=== PATIENT | male | born 1950 | race Caucasian/White ===

== ENCOUNTER → 2017-01-21 | Outpatient (CLI) | payer MEDICARE, OTHER | LOC: HEART 5 11-24 11:00 | DX: R00.2 Palpitations (principal) | CPT/HCPCS: 93306 ==

== ENCOUNTER → 2017-05-04 | Outpatient (CLI) | payer MEDICARE, OTHER | LOC: US 09:27 | PROVIDERS: Internal Medicine Nephrology | DX: N18.3 Chronic kidney disease, stage 3 (moderate) (principal) | CPT/HCPCS: 36415; 80053; 82043; 82570; 83516; 84156; 86039; 86160; 86162; 86225; 86334; 86803; 87340 ==

== ENCOUNTER → 2017-07-18 | Outpatient (CLI) | payer MEDICARE, OTHER | LOC: KOH-I 09:27 | DX: J20.9 Acute bronchitis, unspecified (principal); F17.200 Nicotine dependence, unspecified, uncomplicated; Z95.0 Presence of cardiac pacemaker | CPT/HCPCS: 71020 ==

== ENCOUNTER → 2021-04-07 | Outpatient (CLI) | payer MEDICARE ==
[~2021-04-07] MED LIST: ACTOS30 MG PO; ALBUTEROL0.63 MG/3 NEB; ALL DAY ALLERGY10 M2 PO; AMIODARONE HCL200 MG PO; AMIODARONE HCL400 MG PO; AMOXICILLIN875 MG PO; ASPIRIN CHEWABL81 MG PO; BETAPACE 80MG T80 MG PO; BETAPACE120 MG PO; BUMETANIDE1 MG PO; CLARITIN10 MG PO; CYTOTEC 100 M100 MCG PO; DIABETA 5 MG TAB5 MG PO; ELIQUIS 5 MG TAB5 MG PO; ELIQUIS5 MG PO; FEOSOL325 MG PO; FERROUS FUMARA324 MG PO; FLONASE 0.05% N16 GM; HUMALOG 10100 UNITS/ SC; HUMALOG100 UNIT/1 SC; HUMULIN 70100 UNIT/2 SC; HYDROCHLOROTHIA25 MG PO; IMDUR ER TAB 3030 MG PO; INVOKAMET 150-1 EAC1 PO; IPRAT-ALBUT 0.5-3 ML INH; JANUVIA50 MG PO; LANTUS SOL100 UNIT/1 SQ; LASIX40 MG PO; LEVAQUIN500 MG PO; LEVAQUIN750 MG PO; LIPITOR40 MG PO; LISINOPRIL2.5 MG PO; LISINOPRIL40 MG PO; NOVOLIN 70100 UNIT/1 SQ; OMEPRAZOLE20 MG PO; PACERONE200 MG PO; PANTOPRAZOLE SO40 MG PO; PREDNISONE10 MG PO; PROAIR HFA8.5 GM INH; PROTONIX40 MG PO; REQUIP0.25 MG PO; SENOKOT-S TABL1 EACH PO; SINGULAIR10 MG PO; TOPROL XL25 MG PO; TYLENOL W/CODEIN1 E1 PO; VENTOLIN HFA 66.7 GM INH; VITAMIN B-121000 MC3 PO; ZAROXOLYN/DIULO5 MG PO; ZESTRIL2.5 MG PO; inhaler
== END ==
LOC: HEART 5 08:55
DX: R06.02 Shortness of breath (principal); Z79.899 Other long term (current) drug therapy
CPT/HCPCS: 94060; 94729

== ENCOUNTER 2021-05-19 13:01 | Inpatient (IN) | payer MEDICARE, OTHER ==
[~2021-05-19] VITALS: Ht 182.9 cm; Wt 104.8 kg
[~2021-05-19 13:01] MED LIST changes: -BUMETANIDE1 MG PO; -CLARITIN10 MG PO; -FERROUS FUMARA324 MG PO; -HUMULIN 70100 UNIT/2 SC; -LANTUS SOL100 UNIT/1 SQ; -PACERONE200 MG PO; -VITAMIN B-121000 MC3 PO; -ZAROXOLYN/DIULO5 MG PO
[2021-05-19 14:30] LABS: HEMOGLOBIN 10.9 gm/dl (14.0-17.5); RED BLOOD COUNT 3.7 M/UL (4.20-5.50)
[2021-05-19] MEDS ORDERED: PACERONE200 MG PO (15:58)
[2021-05-19] MEDS ORDERED: VENTOLIN HFA 66.7 GM INH (16:16)
[2021-05-19] MEDS ORDERED: FERROUS FUMARA324 MG PO (16:16)
[2021-05-19] MEDS ORDERED: LASIX40 MG PO (16:17)
[2021-05-19] MEDS ORDERED: FLONASE 0.05% N16 GM (16:20)
[2021-05-19] MEDS ORDERED: VITAMIN B-121000 MC3 PO (16:20)
[2021-05-19] MEDS ORDERED: ZAROXOLYN/DIULO5 MG PO (16:20)
[2021-05-19] MEDS ORDERED: CLARITIN10 MG PO (19:34)
[2021-05-20 04:28] LABS: RED BLOOD COUNT 3.76 M/UL (4.20-5.50); WHITE BLOOD COUNT 6.7 K/UL (4.5-11.0)
[2021-05-21 02:31] LABS: HEMOGLOBIN 10.7 gm/dl (14.0-17.5); RED BLOOD COUNT 3.79 M/UL (4.20-5.50); WHITE BLOOD COUNT 7.1 K/UL (4.5-11.0)
[2021-05-21 09:08] LABS: BODY FLUID SOURCE PLEURAL
[2021-05-21 09:09] LABS: MONONUCLEAR CELLS 81.3 (75-100); POLYMORPHONUCLEAR % 18.7 (0-25); RBC (AUTOMATED) 500 (0-100000); WBC (AUTOMATED) 112 (0-500)
[2021-05-21 09:26] LABS: LDH, BODY FLUID 112 U/L; TOTAL PROTEIN, BODY FLUID 3.1 gm/dL
[2021-05-22 05:26] LABS: HEMOGLOBIN 10.6 gm/dl (14.0-17.5); RED BLOOD COUNT 3.69 M/UL (4.20-5.50); WHITE BLOOD COUNT 6.5 K/UL (4.5-11.0)
[2021-05-22] MEDS ORDERED: BUMETANIDE1 MG PO (09:51)
[2021-07-02] MEDS ORDERED: AUGMENTIN 875-1 EACH PO (12:12)
== END 2021-05-22 12:19 | disposition home or self-care (01) | DRG 291 ==
LOC: ER1 13:01 → CDU 15:41 → PROG CARE 22:46 → M/S 05-21 15:38
PROVIDERS: Emergency Medicine; ADMIT Internal Medicine
PROC: B24BZZZ Ultrasonography of Heart with Aorta (ICD-10-PCS; 2021-05-20)
PROC: 0W9930Z Drainage of Right Pleural Cavity with Drainage Device, Percutaneous Approach (ICD-10-PCS; principal; 2021-05-21)
DX: I13.0 Hypertensive heart and chronic kidney disease with heart failure and stage 1 through stage 4 chronic kidney disease, or unspecified chronic kidney disease (principal); I50.23 Acute on chronic systolic (congestive) heart failure; J96.01 Acute respiratory failure with hypoxia; J90 Pleural effusion, not elsewhere classified; N17.9 Acute kidney failure, unspecified; Z20.822 Contact with and (suspected) exposure to COVID-19; I42.0 Dilated cardiomyopathy; D64.9 Anemia, unspecified; N18.30 Chronic kidney disease, stage 3 unspecified; E11.22 Type 2 diabetes mellitus with diabetic chronic kidney disease; I27.81 Cor pulmonale (chronic); I44.7 Left bundle-branch block, unspecified; E11.65 Type 2 diabetes mellitus with hyperglycemia; E78.5 Hyperlipidemia, unspecified; Z86.010 Personal history of colon polyps; Z90.49 Acquired absence of other specified parts of digestive tract; Z87.891 Personal history of nicotine dependence; Z95.810 Presence of automatic (implantable) cardiac defibrillator; Z82.49 Family history of ischemic heart disease and other diseases of the circulatory system; Z80.9 Family history of malignant neoplasm, unspecified; Z90.01 Acquired absence of eye; Z79.01 Long term (current) use of anticoagulants; Z79.899 Other long term (current) drug therapy; Z79.4 Long term (current) use of insulin; Z87.01 Personal history of pneumonia (recurrent)
CPT/HCPCS: ECHO; 36415; 36600; 71045; 71250; 80053; 81001; 82436; 82550; 82553; 82570; 82803; 82945; 82962; 83605; 83615; 83735; 83874; 83880; 84133; 84156; 84157; 84300; 84443; 84484; 85025; 85610; 86140; 87040; 87070; 87205; 89051; 93005; 93306; 94664; 99285; C1729; J0696; J1940; J7030; J7050; U0002

== ENCOUNTER → 2021-06-05 | Outpatient (CLI) | payer MEDICARE, OTHER ==
[~2021-06-05] MED LIST changes: +AUGMENTIN 875-1 EACH PO; +B COMPLEX1 EACH PO; +BREZTRI AEROS10.7 GM INH; +BUMETANIDE1 MG PO; +CLARITIN10 MG PO; +FERROUS FUMARA324 MG PO; +HUMULIN 70100 UNIT/2 SQ; +LANTUS SOL100 UNIT/1 SQ; +MIDODRINE HCL2.5 MG PO; +PACERONE200 MG PO; +PHENERGAN 25 MG25 M1 PO; +PREDNISONE 20 M20 MG PO; +PREDNISONE20 MG PO; +VITAMIN B-121000 MC3 PO; +ZAROXOLYN/DIULO5 MG PO
== END ==
LOC: EXRD 09:15
DX: J90 Pleural effusion, not elsewhere classified (principal)
CPT/HCPCS: 71046

== ENCOUNTER 2021-07-05 18:47 | Inpatient (IN) | payer MEDICARE ==
[~2021-07-05] VITALS: Ht 182.9 cm; Wt 96.6 kg
[~2021-07-05 18:47] MED LIST changes: -B COMPLEX1 EACH PO; -BREZTRI AEROS10.7 GM INH; -HUMULIN 70100 UNIT/2 SQ; -LANTUS SOL100 UNIT/1 SQ; -MIDODRINE HCL2.5 MG PO; -PHENERGAN 25 MG25 M1 PO; -PREDNISONE 20 M20 MG PO; -PREDNISONE20 MG PO
[2021-07-05 19:43] LABS: HEMOGLOBIN 11.3 gm/dl (14.0-17.5); RED BLOOD COUNT 3.94 M/UL (4.20-5.50); WHITE BLOOD COUNT 10.1 K/UL (4.5-11.0)
[2021-07-06 03:32] LABS: HEMOGLOBIN 11.1 gm/dl (14.0-17.5); RED BLOOD COUNT 3.88 M/UL (4.20-5.50); WHITE BLOOD COUNT 9.9 K/UL (4.5-11.0)
[2021-07-06] MEDS ORDERED: BUMETANIDE1 MG PO (12:02)
[2021-07-06] MEDS ORDERED: ZESTRIL2.5 MG PO (12:03)
[2021-07-06] MEDS ORDERED: BREZTRI AEROS10.7 GM INH (12:10)
[2021-07-06] MEDS ORDERED: ELIQUIS 5 MG TAB5 MG PO (13:37)
[2021-07-06 14:58] LABS: BODY FLUID SOURCE PLEURAL
[2021-07-06 14:59] LABS: RBC (AUTOMATED) 500 (0-100000); WBC (AUTOMATED) 80 (0-500)
[2021-07-06 15:00] LABS: MONONUCLEAR CELLS 62.5 (75-100); POLYMORPHONUCLEAR % 37.5 (0-25)
[2021-07-06 15:21] LABS: LDH, BODY FLUID 106 U/L; TOTAL PROTEIN, BODY FLUID 3.4 gm/dL
[2021-07-06] MEDS ORDERED: IPRAT-ALBUT 0.5-3 ML INH (16:16)
[2021-07-06] MEDS ORDERED: SINGULAIR10 MG PO (16:18)
[2021-07-06] MEDS ORDERED: HUMULIN 70100 UNIT/2 SQ (16:19)
[2021-07-06] MEDS ORDERED: LANTUS SOL100 UNIT/1 SQ (19:35)
== END 2021-07-06 16:00 | disposition home or self-care (01) | DRG 291 ==
LOC: ER1 18:47 → CDU 20:41
PROVIDERS: Internal Medicine; Physician Assistant; ADMIT Internal Medicine
PROC: 0W993ZZ Drainage of Right Pleural Cavity, Percutaneous Approach (ICD-10-PCS; principal; 2021-07-06)
PROC: BB4BZZZ Ultrasonography of Pleura (ICD-10-PCS; 2021-07-06)
DX: I13.0 Hypertensive heart and chronic kidney disease with heart failure and stage 1 through stage 4 chronic kidney disease, or unspecified chronic kidney disease (principal); I50.23 Acute on chronic systolic (congestive) heart failure; J96.01 Acute respiratory failure with hypoxia; I48.20 Chronic atrial fibrillation, unspecified; J90 Pleural effusion, not elsewhere classified; I42.8 Other cardiomyopathies; I42.2 Other hypertrophic cardiomyopathy; I48.0 Paroxysmal atrial fibrillation; I44.7 Left bundle-branch block, unspecified; I27.81 Cor pulmonale (chronic); N18.30 Chronic kidney disease, stage 3 unspecified; W18.30XA Fall on same level, unspecified, initial encounter; D63.1 Anemia in chronic kidney disease; F17.210 Nicotine dependence, cigarettes, uncomplicated; E11.22 Type 2 diabetes mellitus with diabetic chronic kidney disease; E78.5 Hyperlipidemia, unspecified; Z79.01 Long term (current) use of anticoagulants; Z87.01 Personal history of pneumonia (recurrent); Z99.81 Dependence on supplemental oxygen; Z90.49 Acquired absence of other specified parts of digestive tract; Z79.4 Long term (current) use of insulin; Z86.73 Personal history of transient ischemic attack (TIA), and cerebral infarction without residual deficits; Z82.49 Family history of ischemic heart disease and other diseases of the circulatory system; Z95.810 Presence of automatic (implantable) cardiac defibrillator
CPT/HCPCS: 36600; 71045; 71046; 73030; 73070; 80048; 80053; 82550; 82553; 82803; 82962; 83605; 83615; 83735; 83874; 83880; 84157; 84484; 85025; 87040; 89051; 93005; 94640; 94664; 94760; 96374; 99285; C1729; J1940; U0002

== ENCOUNTER 2021-07-15 16:02 | Inpatient (IN) | payer MEDICARE, OTHER ==
[~2021-07-15] VITALS: Ht 182.9 cm; Wt 97.1 kg
[~2021-07-15 16:02] MED LIST changes: +BREZTRI AEROS10.7 GM INH; +HUMULIN 70100 UNIT/2 SQ; +LANTUS SOL100 UNIT/1 SQ
[2021-07-15 17:01] LABS: HEMOGLOBIN 10.6 gm/dl (14.0-17.5); RED BLOOD COUNT 3.86 M/UL (4.20-5.50); WHITE BLOOD COUNT 13.7 K/UL (4.5-11.0)
[2021-07-16] LABS: RED BLOOD COUNT 3.99 M/UL (4.20-5.50); WHITE BLOOD COUNT 13.4 K/UL (4.5-11.0)
[2021-07-16] MEDS ORDERED: PHENERGAN 25 MG25 M1 PO (11:18)
[2021-07-16] MEDS ORDERED: B COMPLEX1 EACH PO (11:18)
[2021-07-16 16:30] LABS: HEMOGLOBIN 11.2 gm/dl (14.0-17.5); RED BLOOD COUNT 4.08 M/UL (4.20-5.50); WHITE BLOOD COUNT 12.2 K/UL (4.5-11.0)
[2021-07-17 09:31] LABS: HEMOGLOBIN 10.5 gm/dl (14.0-17.5); RED BLOOD COUNT 3.81 M/UL (4.20-5.50); WHITE BLOOD COUNT 10.8 K/UL (4.5-11.0)
[2021-07-17 14:13] LABS: ANTI-DSDNA ANTIBODIES 3 IU/mL (0-9)
[2021-07-18 03:51] LABS: HEMOGLOBIN 10.3 gm/dl (14.0-17.5); RED BLOOD COUNT 3.72 M/UL (4.20-5.50); WHITE BLOOD COUNT 10.2 K/UL (4.5-11.0)
[2021-07-19 03:02] LABS: HEMOGLOBIN 10.9 gm/dl (14.0-17.5); RED BLOOD COUNT 3.93 M/UL (4.20-5.50)
[2021-07-20 11:42] LABS: RED BLOOD COUNT 4.03 M/UL (4.20-5.50)
[2021-07-21 08:13] LABS: CYTOPLASMIC (C-ANCA) <1:20 titer (Neg:<1:20); PERINUCLEAR (P-ANCA) <1:20 titer (Neg:<1:20)
[2021-07-21 08:27] LABS: HEMOGLOBIN 11.2 gm/dl (14.0-17.5); RED BLOOD COUNT 4.15 M/UL (4.20-5.50); WHITE BLOOD COUNT 12.6 K/UL (4.5-11.0)
[2021-07-21 11:59] LABS: TOTAL PROTEIN, BODY FLUID 2.8 gm/dL
[2021-07-22 04:54] LABS: HEMOGLOBIN 11.2 gm/dl (14.0-17.5); RED BLOOD COUNT 4.08 M/UL (4.20-5.50); WHITE BLOOD COUNT 14.1 K/UL (4.5-11.0)
[2021-07-23 03:15] LABS: HEMOGLOBIN 11.4 gm/dl (14.0-17.5); RED BLOOD COUNT 4.05 M/UL (4.20-5.50); WHITE BLOOD COUNT 14.6 K/UL (4.5-11.0)
[2021-07-23] MEDS ORDERED: MIDODRINE HCL2.5 MG PO (14:58)
[2021-07-23] MEDS ORDERED: PREDNISONE 20 M20 MG PO (15:00)
[2021-07-23] MEDS ORDERED: PREDNISONE20 MG PO (16:04)
== END 2021-07-23 17:50 | disposition home health service (06) | DRG 163 ==
LOC: ER1 16:02 → PROG CARE 19:06 → CDU 19:06 → PROG CARE 07-16 07:45
PROVIDERS: Internal Medicine; Internal Medicine Nephrology; Internal Medicine Pulmonary Disease; Nurse Practitioner Family; Student in an Organized Health Care Education/Training Program; ADMIT Internal Medicine
PROC: 30233N1 Transfusion of Nonautologous Red Blood Cells into Peripheral Vein, Percutaneous Approach (ICD-10-PCS; 2021-07-15)
PROC: 0BD88ZX Extraction of Left Upper Lobe Bronchus, Via Natural or Artificial Opening Endoscopic, Diagnostic (ICD-10-PCS; 2021-07-17)
PROC: 0BD98ZX Extraction of Lingula Bronchus, Via Natural or Artificial Opening Endoscopic, Diagnostic (ICD-10-PCS; 2021-07-17)
PROC: 0BJK8ZZ Inspection of Right Lung, Via Natural or Artificial Opening Endoscopic (ICD-10-PCS; 2021-07-17)
PROC: 0BB98ZX Excision of Lingula Bronchus, Via Natural or Artificial Opening Endoscopic, Diagnostic (ICD-10-PCS; 2021-07-17)
PROC: 0W3Q8ZZ Control Bleeding in Respiratory Tract, Via Natural or Artificial Opening Endoscopic (ICD-10-PCS; 2021-07-17)
PROC: 0BBG8ZX Excision of Left Upper Lung Lobe, Via Natural or Artificial Opening Endoscopic, Diagnostic (ICD-10-PCS; principal; 2021-07-17 07:30)
PROC: 0W993ZZ Drainage of Right Pleural Cavity, Percutaneous Approach (ICD-10-PCS; 2021-07-21)
PROC: BB4BZZZ Ultrasonography of Pleura (ICD-10-PCS; 2021-07-21)
DX: J84.89 Other specified interstitial pulmonary diseases (principal); J96.21 Acute and chronic respiratory failure with hypoxia; K92.2 Gastrointestinal hemorrhage, unspecified; D62 Acute posthemorrhagic anemia; J90 Pleural effusion, not elsewhere classified; N17.9 Acute kidney failure, unspecified; I13.0 Hypertensive heart and chronic kidney disease with heart failure and stage 1 through stage 4 chronic kidney disease, or unspecified chronic kidney disease; I50.32 Chronic diastolic (congestive) heart failure; I42.8 Other cardiomyopathies; E87.1 Hypo-osmolality and hyponatremia; J44.0 Chronic obstructive pulmonary disease with (acute) lower respiratory infection; I42.2 Other hypertrophic cardiomyopathy; J93.83 Other pneumothorax; Z20.822 Contact with and (suspected) exposure to COVID-19; J84.115 Respiratory bronchiolitis interstitial lung disease; I44.7 Left bundle-branch block, unspecified; D50.9 Iron deficiency anemia, unspecified; W18.30XA Fall on same level, unspecified, initial encounter; I95.9 Hypotension, unspecified; I27.81 Cor pulmonale (chronic); E78.5 Hyperlipidemia, unspecified; S50.02XA Contusion of left elbow, initial encounter; D63.1 Anemia in chronic kidney disease; E11.22 Type 2 diabetes mellitus with diabetic chronic kidney disease; F17.210 Nicotine dependence, cigarettes, uncomplicated; N18.2 Chronic kidney disease, stage 2 (mild); I48.0 Paroxysmal atrial fibrillation; Z79.01 Long term (current) use of anticoagulants; Z87.01 Personal history of pneumonia (recurrent); Z95.810 Presence of automatic (implantable) cardiac defibrillator; Z99.81 Dependence on supplemental oxygen; Z79.82 Long term (current) use of aspirin; Z79.4 Long term (current) use of insulin
CPT/HCPCS: 36415; 36430; 36600; 71045; 71250; 73070; 76000; 80048; 80053; 80202; 82272; 82310; 82533; 82728; 82803; 82962; 83036; 83540; 83550; 83615; 83690; 83735; 83880; 84100; 84157; 84484; 85025; 85652; 86038; 86140; 86225; 86256; 86850; 86900; 86901; 86920; 87015; 87070; 87116; 87205; 87206; 87252; 90686; 93005; 94640; 94664; 94760; 97110; 97110-GP-CQ; 97116-GP-CQ; 97161; 97166; 97530-GP-CQ; 99285; A6212; C9113; G0008; J0456; J0610; J0696; J1205; J2001; J2185; J2704; J2920; J2930; J3370; J7030; J7060; J7070; J7120; P9016; P9047; U0002

== ENCOUNTER 2021-08-14 11:16 | Inpatient (IN) | payer MEDICARE ==
[~2021-08-14] VITALS: Ht 182.9 cm; Wt 95.3 kg
[~2021-08-14 11:16] MED LIST changes: +B COMPLEX1 EACH PO; -HUMULIN 70100 UNIT/2 SQ; -LANTUS SOL100 UNIT/1 SQ; +MIDODRINE HCL2.5 MG PO; +PHENERGAN 25 MG25 M1 PO; +PREDNISONE 20 M20 MG PO; +PREDNISONE20 MG PO
[2021-08-14 11:34] LABS: RED BLOOD COUNT 2.8 M/UL (4.20-5.50); WHITE BLOOD COUNT 3.7 K/UL (4.5-11.0)
[2021-08-14] MEDS ORDERED: HUMULIN 70100 UNIT/2 SQ (16:19)
[2021-08-14] MEDS ORDERED: ELIQUIS5 MG PO (18:57)
[2021-08-14] MEDS ORDERED: NYSTATIN-TRIAMC15 GM TOP (18:57)
[2021-08-14] MEDS ORDERED: BUMETANIDE1 MG PO (18:58)
[2021-08-14] MEDS ORDERED: LISINOPRIL2.5 MG PO (18:58)
[2021-08-14] MEDS ORDERED: ISOSORBIDE MONO30 MG PO (18:58)
[2021-08-14] MEDS ORDERED: METOPROLOL SUCC25 MG PO (18:59)
[2021-08-14] MEDS ORDERED: VITAMIN B12-FO1 EACH PO (18:59)
[2021-08-14] MEDS ORDERED: IPRAT-ALBUT 0.5-3 ML NEB (19:00)
[2021-08-14] MEDS ORDERED: LANTUS SOL100 UNIT/1 SQ (19:35)
[2021-08-14 19:48] LABS: HEMOGLOBIN 8.1 gm/dl (14.0-17.5)
[2021-08-15 04:35] LABS: HEMOGLOBIN 8.7 gm/dl (14.0-17.5); RED BLOOD COUNT 3.04 M/UL (4.20-5.50); WHITE BLOOD COUNT 3.3 K/UL (4.5-11.0)
[2021-08-15 11:33] LABS: HEMOGLOBIN 8.8 gm/dl (14.0-17.5)
--- NOTE | 2021-08-15 17:11 | NUR ---
AT BEDSIDE TODAY, SHE WAS FREQUENTLY UPDATED ON PLAN OF CARE, GIVEN INFORMATION SUCH MEDICATIONS AND LAB VALUES, ETC., AND SPOKE WITH THE MDS WHEN THEY ROUNDED.
[2021-08-16 08:43] LABS: HEMOGLOBIN 9.1 gm/dl (14.0-17.5); RED BLOOD COUNT 3.18 M/UL (4.20-5.50)
[2021-08-16 08:44] LABS: WHITE BLOOD COUNT 4.6 K/UL (4.5-11.0)
--- NOTE | 2021-08-16 15:41 | NUR ---
SPOKE WITH PATIENT'S TODAY ABOUT PATIENT'S PLAN OF CARE. SHE WAS AT BEDSIDE WHEN THE MD ROUNDED.
[2021-08-17 04:39] LABS: HEMOGLOBIN 8.5 gm/dl (14.0-17.5); RED BLOOD COUNT 2.95 M/UL (4.20-5.50); WHITE BLOOD COUNT 4.6 K/UL (4.5-11.0)
--- NOTE | 2021-08-17 10:58 | NUR ---
PATIENT BACK FROM ENDOSCOPY, HOOKED UP TO POST-OP VITALS. ASSESSMENT COMPLETE WITH NO CHANGES EXCEPT PATIENT DROWSY AT THIS TIME. RESPONSIVE AND ANSWERS WHEN AWAKENED. WCTM CLOSELY.
[2021-08-18 08:06] LABS: RED BLOOD COUNT 2.87 M/UL (4.20-5.50); WHITE BLOOD COUNT 3.9 K/UL (4.5-11.0)
[2021-08-18] MEDS ORDERED: ASPIRIN EC81 MG PO (18:36)
[2021-08-19 06:50] LABS: HEMOGLOBIN 8.5 gm/dl (14.0-17.5); RED BLOOD COUNT 2.96 M/UL (4.20-5.50); WHITE BLOOD COUNT 3.7 K/UL (4.5-11.0)
--- NOTE | 2021-08-19 17:54 | NUR ---
PATIENT HAS FELT LIKE HE IS "SMOTHERING" OFF AND ON TODAY. ASKED TO HAVE THE IV FLUIDS TURNED OFF. MD AWARE, AND MADE AWARE OF SIGNIFICANTLY WORSENING RIGHT ARM SWELLING. DR LAGOS ORDERED A KIDNEY ULTRASOUND, BUT VERY RECENT ULTRASOUND HAD BEEN PERFORMED ACCORDING TO TECH, SO THEY WANTED IT CANCELLED. PATIENT SAYS HE "DOESN'T FEEL WELL". MD AWARE OF PATIENT ISSUES TODAY. WCTM CLOSELY.
[2021-08-20 05:35] LABS: HEMOGLOBIN 8.8 gm/dl (14.0-17.5); RED BLOOD COUNT 3.1 M/UL (4.20-5.50); WHITE BLOOD COUNT 3.8 K/UL (4.5-11.0)
--- NOTE | 2021-08-21 01:54 | NUR ---
2235 500ML BOLUS WAS STARTED AT 250ML/HR, DUE TO HEART FAILURE, BP WAS CHECK 93/48, CHECKED AGAIN ONCE BOLUS WAS FINISHED 0048 109/75.
[2021-08-21 07:08] LABS: HEMOGLOBIN 8.2 gm/dl (14.0-17.5); RED BLOOD COUNT 2.95 M/UL (4.20-5.50); WHITE BLOOD COUNT 4.6 K/UL (4.5-11.0)
[2021-08-22 01:56] LABS: HEMOGLOBIN 8.8 gm/dl (14.0-17.5); RED BLOOD COUNT 3.06 M/UL (4.20-5.50); WHITE BLOOD COUNT 5.7 K/UL (4.5-11.0)
--- NOTE | 2021-08-22 02:24 | NUR ---
WENT INTO PT ROOM TO CHECK IV PUMP AT APPROX 0015, PT STATED HE WAS SOB, AND WAS USING ABDOMINAL MUSLCE IN BREATHING, CHECKED BP 111/76, O2- 86%, RAISED PT UP IN THE BED, O2 CAME UP TO 89%, RESPIRATORY WAS CALLED FOR BREATHING TX, AFTER RECIEVING TX O2 CAME UP TO 93%. CALLED DT HERMAN AND NOTIFIED OF ABOVE, ORDERS PUT IN UNDER PROVIDER NOTIFICATIONS, ALSO RECIEVED ORDER FOR PULSE OX, INCREASED PT O2 FROM 2L TO 4L. PT HAS STAYED BETWEEN 92% AND 96%.
--- NOTE | 2021-08-22 03:23 | NUR ---
CALLED XRAY TO CHECK ON STAT XRAY RESULTS, WAS TOLD IT WASNT READ YET AND WAS ASK IF I WANTED IT TO BE SENT OFF, ASKED WHAT THAT MEANT, TOLD LADY YES TO SEND OFF IT THAT WILL MAKE RESULTS QUICKER. NOTIFIED DR SUTTON OF DELAY IN RESULTS WELL.
--- NOTE | 2021-08-22 07:17 | NUR ---
[address] SUTTON DIDNT ANSWER [address] LAGOS QUINCY NOTIFIED HIM OF PTS LABOR BREATHING EVEN ON THE BIPAP THAT WAS APPLIED. PRO BNP 6276 PT ONLY HAVING 100ML OUTPUT FOR THE NIGHT. NOTIFIED THAT FLUIDS ALREADY D/C. ORDERED IV LASIX 40MG AND DO BLADDER SCAN IF RETAINING MORE THAN [address] SUTTON CALLED BACK NOTIFIED HIM ALREADY CALLED PT DR LAGOS. DR. LAGOS CALLED BACK AND ORDERED FOR RN TO MONITIOR THE BLOOD PRESSURE CLOSELY. NOTIFIED ON COMING RN OF ALL ABOVE DURING REPORT.
--- NOTE | 2021-08-22 13:15 | NUR ---
PATIENT TRANSPORTED TO PCU PER DR. AGUILAR'S REQUEST. RN INFORMED MD THAT PATIENT HAD BEEN PLACED ON BIPAP, CONTINUED TO BREATHE WITH ACCESSORY MUSCLES, AND SOUNDED WET IN HIS LEFT UPPER AND LOWER LUNG LOBES. FLUIDS DISCONTINUED PER DR. LAGOS WELL DIURETICS GIVEN PER BOTH MDS. REPORT GIVEN TO RECEIVING NURSE AND TRANSPORTED TO PCU BY RN AND RT ON BIPAP. MD AND [employer]EW[employer]ATMENT PLANT ATTENDANT MADE AWARE.
[2021-08-23 04:21] LABS: HEMOGLOBIN 9.1 gm/dl (14.0-17.5); RED BLOOD COUNT 3.16 M/UL (4.20-5.50)
[2021-08-23 04:27] LABS: WHITE BLOOD COUNT 7.8 K/UL (4.5-11.0)
[2021-08-23 19:28] LABS: BODY FLUID SOURCE PLEURAL
[2021-08-23 19:29] LABS: MONONUCLEAR CELLS 80.2 %; POLYMORPHONUCLEAR 19.8 %; RBC (AUTOMATED) 1000 10^6; WBC (AUTOMATED) 86 10^3
[2021-08-23 19:47] LABS: TOTAL PROTEIN, BODY FLUID 2.4 gm/dL
[2021-08-23 19:48] LABS: LDH, BODY FLUID 120 U/L
--- NOTE | 2021-08-23 21:42 | NUR ---
PT IN ROOM 2123 UPON ARRIVAL TO THE FLOOR WITH DR. Allen IN ROOM PERFORMING THORACENTESIS. BESIDE REPORT WAS GIVEN KENYETTA TORRES RN WITH ONLY INFORMATION GIVEN TO HER BY PCU NURSE. 1400CC WAS PULLED OFF DURING THOARCENTESIS WITH LABS SENT AO. PT IS ON 40% FIO2 VIA BIPAP MID - HIGH 80S. FIO2 WAS INCREASED TO 50% AO PER DR. Tanner AND REMAINS AT BEDSIDE AFTER THORACENTESIS WAS PERFORMED. FI02 INCREASED TO 100% R/T HYPOXIA, SOA, AND LABORED RESPIRATIONS. LEVOPHED INCREASED TO 30MCG/HR PER DR. Allen R/T UNABLE TO MAINTAIN MAP AT OR GREATER THAN 65. RTIJ PLACED BY DR. Allen WILL XRAY CONFIRMATION GIVEN AND CONSENT FROM PT. . PT REMANIS AT 90 FIO2 JOSHUA O2 SAT 100% HR 70 RESPIRATORY RATE 26 AND BP 99/55 (66).
[2021-08-24 08:13] LABS: RED BLOOD COUNT 3.59 M/UL (4.20-5.50); WHITE BLOOD COUNT 17.2 K/UL (4.5-11.0)
[2021-08-24] MEDS ORDERED: LEVOPHED BI1 MG/1 M1 IV (10:29)
[2021-08-25 04:26] LABS: HEMOGLOBIN 9.8 gm/dl (14.0-17.5); RED BLOOD COUNT 3.41 M/UL (4.20-5.50)
--- NOTE | 2021-08-25 05:48 | NUR ---
[facility] CALL[facility] TO INFORM STAFF THAT THEY NOW HAVE A BED FOR MR. DAMON REPORT CALLED TO [facility]. BED 3. TRANSPORT CALLED.
== END 2021-08-25 07:05 | disposition short-term general hospital (02) | DRG 377 ==
LOC: ER1 11:16 → MED SURG 4 14:50 → ZEROF 14:50 → MED SURG 4 16:25 → CCU 08-17 18:00 → MED SURG 4 08-17 18:00 → PROG CARE 08-22 12:51 → CCU 08-23 18:12
PROVIDERS: Internal Medicine; Internal Medicine Nephrology; Physician Assistant; ADMIT Internal Medicine
PROC: 30233N1 Transfusion of Nonautologous Red Blood Cells into Peripheral Vein, Percutaneous Approach (ICD-10-PCS; 2021-08-14)
PROC: 0DJ08ZZ Inspection of Upper Intestinal Tract, Via Natural or Artificial Opening Endoscopic (ICD-10-PCS; 2021-08-17)
PROC: 0DBL8ZZ Excision of Transverse Colon, Via Natural or Artificial Opening Endoscopic (ICD-10-PCS; 2021-08-18)
PROC: 3E033XZ Introduction of Vasopressor into Peripheral Vein, Percutaneous Approach (ICD-10-PCS; principal; 2021-08-22)
PROC: 5A09457 Assistance with Respiratory Ventilation, 24-96 Consecutive Hours, Continuous Positive Airway Pressure (ICD-10-PCS; 2021-08-22)
PROC: B24BZZ4 Ultrasonography of Heart with Aorta, Transesophageal (ICD-10-PCS; 2021-08-23)
PROC: 0W993ZZ Drainage of Right Pleural Cavity, Percutaneous Approach (ICD-10-PCS; 2021-08-23)
PROC: 02HV33Z Insertion of Infusion Device into Superior Vena Cava, Percutaneous Approach (ICD-10-PCS; 2021-08-23)
PROC: B548ZZA Ultrasonography of Superior Vena Cava, Guidance (ICD-10-PCS; 2021-08-23)
PROC: BB4BZZZ Ultrasonography of Pleura (ICD-10-PCS; 2021-08-23)
DX: K92.2 Gastrointestinal hemorrhage, unspecified (principal); R57.0 Cardiogenic shock; J96.01 Acute respiratory failure with hypoxia; I50.43 Acute on chronic combined systolic (congestive) and diastolic (congestive) heart failure; N17.0 Acute kidney failure with tubular necrosis; N17.9 Acute kidney failure, unspecified; J90 Pleural effusion, not elsewhere classified; I13.0 Hypertensive heart and chronic kidney disease with heart failure and stage 1 through stage 4 chronic kidney disease, or unspecified chronic kidney disease; I42.2 Other hypertrophic cardiomyopathy; D62 Acute posthemorrhagic anemia; E87.1 Hypo-osmolality and hyponatremia; E87.2 Acidosis; Z20.822 Contact with and (suspected) exposure to COVID-19; R74.01 Elevation of levels of liver transaminase levels; E11.22 Type 2 diabetes mellitus with diabetic chronic kidney disease; J44.9 Chronic obstructive pulmonary disease, unspecified; L89.152 Pressure ulcer of sacral region, stage 2; N18.30 Chronic kidney disease, stage 3 unspecified; I48.0 Paroxysmal atrial fibrillation; I49.5 Sick sinus syndrome; H54.61 Unqualified visual loss, right eye, normal vision left eye; F17.210 Nicotine dependence, cigarettes, uncomplicated; I44.7 Left bundle-branch block, unspecified; I08.1 Rheumatic disorders of both mitral and tricuspid valves; D50.9 Iron deficiency anemia, unspecified; I27.20 Pulmonary hypertension, unspecified; E87.6 Hypokalemia; D63.1 Anemia in chronic kidney disease; E78.5 Hyperlipidemia, unspecified; Z79.01 Long term (current) use of anticoagulants; Z79.82 Long term (current) use of aspirin; Z95.810 Presence of automatic (implantable) cardiac defibrillator; Z90.49 Acquired absence of other specified parts of digestive tract; Z82.49 Family history of ischemic heart disease and other diseases of the circulatory system; Z80.2 Family history of malignant neoplasm of other respiratory and intrathoracic organs; Z79.4 Long term (current) use of insulin; Z86.73 Personal history of transient ischemic attack (TIA), and cerebral infarction without residual deficits
CPT/HCPCS: ECHO; 31500; 36415; 36430; 36600; 71045; 71250; 80048; 80053; 81001; 82009; 82040; 82272; 82550; 82553; 82803; 82962; 83036; 83540; 83550; 83605; 83615; 83735; 83874; 83880; 84100; 84157; 84484; 85014; 85018; 85025; 85027; 85305; 85610; 86850; 86900; 86901; 86920; 87070; 87205; 89051; 93306; 94002; 94640; 94660; 94664; 94760; 96374; 96375; 96376; 99285; A6212; C1729; C1751; C9113; G0378; J0330; J1940; J2250; J2704; J3010; J7030; J7040; J7050; J7070; P9016; P9047; U0002